=== PATIENT | male | born 1985 | race African-American/Black ===

== ENCOUNTER 2022-03-26 04:12 | Emergency (ER) | payer MEDICAID ==
[~2022-03-26] VITALS: Ht 180.3 cm; Wt 82.0 kg
[2022-03-26] MEDS ORDERED: METHYLPREDNISOLONE SOD SUCC 125 MG/2 ML VIAL IV STA (05:12)
[2022-03-26] MEDS ORDERED: ALBUTEROL (0.083%) 2.5MG/3ML NEB HHN STA (05:12)
[2022-03-26] MEDS ORDERED: IPRATROPIUM BROMIDE (0.02%) 0.5MG/2.5ML NEB HHN STA (05:12)
[2022-03-26 05:53] LABS: BASOPHILS % 0.4 % (0.0-2.0); EOSINOPHILS % 0.3 % (0.0-5.0); HEMATOCRIT. 41.2 % (42.0-52.0); HEMOGLOBIN. 14.4 g/dL (14.0-18.0); LYMPHOCYTES % 22.1 % (20.0-50.0); MEAN CORPUSCULAR HEMOGLOBIN 32.6 pg (28.0-32.0); MEAN CORPUSCULAR VOLUME 93.3 fL (80.0-94.0); MEAN PLATELET VOLUME 11.2 fl (7.4-10.4); MONOCYTES % 7.2 % (2.0-8.0); PLATELET 118 x1000/uL (130-400); RED BLOOD CELL COUNT 4.42 mill/uL (4.7-6.1); RED CELL DISTRIBUTION WIDTH 12.9 % (11.6-14.6)
[2022-03-26 06:01] LABS: CHLORIDE 106 mEq/L (98-107)
[2022-03-26] MEDS ORDERED: KCL 10MEQ/50ML PREMIX 50 ML IV ONE ×2 (06:15→08:00)
[2022-03-26] MEDS ORDERED: MAGNESIUM 2 G PREMIX 50 ML IV ONE (06:15)
[2022-03-26] MEDS ORDERED: ONDANSETRON HCL 4MG/2ML INJ IM ONE (06:15)
[2022-03-26] MEDS ORDERED: SODIUM CHLORIDE 0.9% 1,000 ML IV ONE (06:15)
[2022-03-26] MEDS ORDERED: POTASSIUM CHLORIDE 20MEQ TABLET SR PO ONE (08:00)
[2022-03-26 09:25] VITALS: BP 122/67
== END 2022-03-26 09:55 | disposition left against medical advice (07) ==
LOC: ER 04:12
DX: J45.901 Unspecified asthma with (acute) exacerbation (principal); R06.02 Shortness of breath; E87.6 Hypokalemia; Z20.822 Contact with and (suspected) exposure to COVID-19
CPT/HCPCS: 36415; 71045; 80053; 84484; 85025; 87426; 93005; 96365; 96366; 96368; 96372; 96375; 99285; C9803; J2405; J2930; J3475; J3480; J7030; Z7610

== ENCOUNTER 2023-09-19 12:07 | Emergency (ER) | payer MEDICAID ==
[~2023-09-19] VITALS: Ht 185.4 cm; Wt 97.0 kg
[2023-09-19 12:16] VITALS: O2SAT 99
[2023-09-19] MEDS: IBUPROFEN 600MG TABLET PO ONE (13:06)
[2023-09-19 15:30] VITALS: BP 129/84; PULSE 76; RESP 17; TEMP 97.8
== END 2023-09-19 15:50 | disposition home or self-care (01) ==
LOC: ER 12:12
DX: M79.641 Pain in right hand (principal); M79.642 Pain in left hand; M25.531 Pain in right wrist; M25.532 Pain in left wrist; J45.909 Unspecified asthma, uncomplicated; W18.39XA Other fall on same level, initial encounter; Y93.89 Activity, other specified; Y92.89 Other specified places as the place of occurrence of the external cause; Y99.8 Other external cause status
CPT/HCPCS: 29125; 73090; 73110; 73130; 99284

== ENCOUNTER 2025-03-01 19:01 | Emergency (ER) | payer MEDICAID ==
[~2025-03-01] VITALS: Ht 182.9 cm; Wt 73.0 kg
[2025-03-01 19:03] VITALS: O2SAT 95
[2025-03-01 19:56] LABS: BASOPHILS % 0.6 % (0.0-2.0); EOSINOPHILS % 1.3 % (0.0-5.0); HEMATOCRIT. 38.8 % (42.0-52.0); HEMOGLOBIN. 12.8 g/dL (14.0-18.0); LYMPHOCYTES % 37.1 % (20.0-50.0); MEAN PLATELET VOLUME 10.6 fl (7.4-10.4); MONOCYTES % 10.3 % (2.0-8.0); NEUTROPHILS % 50.7 % (40.0-76.0); PLATELET 123 x1000/uL (130-400); RED BLOOD CELL COUNT 4.02 mill/uL (4.7-6.1); RED CELL DISTRIBUTION WIDTH 14.0 % (11.6-14.6)
[2025-03-01 20:09] LABS: CREATININE 1.0 mg/dL (0.6-1.3)
[2025-03-01 20:10] LABS: UREA NITROGEN BLOOD 10 mg/dL (9-23)
[2025-03-01 20:11] LABS: ASPARTATE AMINOTRANSFERASE 11 IU/L (<34); BILIRUBIN DIRECT 0.1 mg/dL (<=3.0); TROPONIN I HIGH SENSITIVITY < 4 ng/L (3.0-53)
[2025-03-01 20:12] LABS: BILIRUBIN TOTAL 0.3 mg/dL (0.1-1.0); PROTEIN TOTAL 6.9 g/dL (6.0-8.3)
[2025-03-01 21:10] LABS: INR 1.0
[2025-03-01 21:42] VITALS: TEMP 36.7
[2025-03-02 00:10] VITALS: BP 117/54; PULSE 80; RESP 18; O2SAT 98
== END 2025-03-02 01:40 | disposition short-term general hospital (02) ==
LOC: ER 19:01 → EDBEDREQDT 03-02 00:10 → EDBEDREQTM 03-02 00:10 → EDBEDREQ 03-02 00:10 → EDBEDREQSVC 03-02 00:10 → ER 03-02 01:40 → CMPBEDREQ 03-02 07:58
DX: S72.112A Displaced fracture of greater trochanter of left femur, initial encounter for closed fracture (principal); R55 Syncope and collapse; J45.909 Unspecified asthma, uncomplicated; W19.XXXA Unspecified fall, initial encounter; Y93.89 Activity, other specified; Y92.89 Other specified places as the place of occurrence of the external cause; Y99.8 Other external cause status
CPT/HCPCS: 36415; 71045; 72170; 80048; 80076; 80320; 83735; 83880; 84484; 85025; 86850; 86900; 93005; 99285; G0480